=== PATIENT | female | born 1965 | race African-American/Black ===

== ENCOUNTER 2016-11-22 07:50 | Inpatient (IN) | payer MEDICARE, MEDICAID ==
[~2016-11-22] VITALS: Ht 165.1 cm; Wt 49.4 kg
[~2016-11-22 07:50] MED LIST: ASPI325T2 PO; ATOR20TA PO; GLIP10TA10 PO; NVLG73 SUBCUT; PROT20 PO
[2016-11-22] MEDS ORDERED: SODIUM CHLORIDE 0.9% 1,000 ML IV ONE (09:15)
[2016-11-22] MEDS ORDERED: KETOROLAC 30MG/ML VIAL IV STA (09:15)
[2016-11-22] MEDS ORDERED: ONDANSETRON HCL 4MG/2ML VIAL IV STA (09:15)
[2016-11-22 09:40] LABS: BASOPHILS % 1.1 % (0.0-2.0); EOSINOPHILS % 0.4 % (0.0-5.0); HEMATOCRIT. 40.2 % (36.0-48.0); HEMOGLOBIN. 13.4 g/dL (12.0-16.0); LYMPHOCYTES % 31.6 % (20.0-50.0); MEAN CORPUSCULAR HEMOGLOBIN 30.3 pg (28.0-32.0); MEAN CORPUSCULAR HGB CONC 33.3 g/dL (31.0-37.0); MEAN PLATELET VOLUME 8.6 fl (7.4-10.4); NEUTROPHILS % 58.9 % (40.0-76.0); PLATELET 303 x1000/uL (130-400); RED BLOOD CELL COUNT 4.41 mill/uL (4.2-5.4); RED CELL DISTRIBUTION WIDTH 12.9 % (11.6-14.6); WHITE BLOOD COUNT 6.3 x1000/uL (4.5-11.0)
[2016-11-22 09:55] LABS: ALANINE AMINOTRANSFERASE 27 IU/L (13-61); ALBUMIN 3.3 g/dL (3.4-5.0); ANION GAP 15; CALCIUM 9.4 mg/dL (8.5-10.1); CARBON DIOXIDE 28 mEq/L (21-32); CHLORIDE 92 mEq/L (98-107); ETHANOL BLOOD < 10 mg/dL; INDEX HEMOLYSI 1 (1-3); INDEX ICTERIC 1 (1-4); INDEX LIPEMIC 1 (1-3); UREA NITROGEN BLOOD 19 mg/dL (7-21); eGFR > 60 mL/min (>60)
[2016-11-22 10:02] LABS: CLARITY URINE CLEAR (CLEAR); COLOR URINE YELLOW (YELLOW); GLUCOSE URINE 3+ (NEGATIVE); KETONES URINE 1+ (NEGATIVE); LEUKOCYTE ESTERASE URINE NEGATIVE (NEGATIVE); NITRITE URINE NEGATIVE (NEGATIVE); OCCULT BLOOD URINE NEGATIVE (NEGATIVE); PH URINE 5.5 (4.5-8.0); PROTEIN URINE NEGATIVE (NEGATIVE); SPECIFIC GRAVITY URINE 1.037 (1.005-1.030); UROBILINOGEN URINE 0.2 E.U./dL (0.2-1.0)
[2016-11-22 10:16] LABS: *AMPHETAMINES SCREEN URINE NEGATIVE (NEGATIVE); *BARBITURATES SCREEN URINE NEGATIVE (NEGATIVE); *BENZODIAZEPINES SCREEN URINE NEGATIVE (NEGATIVE); *COCAINE SCREEN URINE PRESUMTIVE POSITIVE (NEGATIVE); CANNABINOID URINE SCREEN NEGATIVE (NEGATIVE); ECSTASY MDMA SCREEN URINE NEGATIVE (NEGATIVE); METHADONE URINE SCREEN NEGATIVE (NEGATIVE); OPIATES URINE SCREEN NEGATIVE (NEGATIVE); PHENCYCLIDINE URINE SCREEN NEGATIVE (NEGATIVE)
[2016-11-22 10:19] LABS: BACTERIA URINE TRACE; MUCUS URINE 1+ /lpf (< = 2+); RBC URINE 0-2 /hpf (0-2); SQUAMOUS EPITHELIAL CELL URINE 1+ /lpf (RARE/1+); WBC URINE 0-2 /hpf (0-2)
[2016-11-22 10:20] LABS: YEAST URINE 1+
[2016-11-22] MEDS ORDERED: INSULIN REGULAR 100 UNIT/ML IV ONE (11:30)
[2016-11-22] MEDS ORDERED: NITROGLYCERIN 0.4MG TABLET SL SL PRN (12:15)
[2016-11-22] MEDS ORDERED: IPRATROPIUM/ALBUTEROL 0.5-3(2.5)MG/3ML NEB INH PRN (12:15)
[2016-11-22] MEDS ORDERED: CLONIDINE 0.1MG TABLET PO PRN (12:15)
[2016-11-22] MEDS ORDERED: ACETAMINOPHEN 325MG TABLET PO PRN (12:15)
[2016-11-22] MEDS ORDERED: ONDANSETRON HCL 4MG/2ML VIAL IV PRN (12:15)
[2016-11-22] MEDS ORDERED: DOCUSATE SODIUM 100MG CAPSULE PO PRN (12:15)
[2016-11-22] MEDS ORDERED: KETOROLAC 15MG/ML VIAL IV PRN (12:15)
[2016-11-22] MEDS ORDERED: DEXTROSE 50% WATER 50ML SYRINGE IV PRN (12:15)
[2016-11-22] MEDS ORDERED: MAGNESIUM/ALUMINUM HYDROXIDE/SIMETHICONE 30ML UDC PO PRN (12:15)
[2016-11-22] MEDS ORDERED: DIPHENHYDRAMINE 50MG/ML VIAL IV PRN (12:15)
[2016-11-22] MEDS ORDERED: LORAZEPAM 2MG/ML CPJ IV PRN (12:15)
[2016-11-22] MEDS ORDERED: GUAIFENESIN 200MG/10ML SUGAR FREE UDC PO PRN (12:15)
[2016-11-22] MEDS ORDERED: NA PHOS,M-B/NA PHOS,DI-BA ENEMA 118ML PR PRN (12:15)
[2016-11-22] MEDS ORDERED: INSULIN REGULAR (HUMULIN R) 300UNITS/3ML ONE (12:26)
[2016-11-22 15:00] VITALS: BP 116/72
[2016-11-22 15:18] VITALS: BP 116/72
[2016-11-22] MEDS: ENOXAPARIN 40MG/0.4ML SYR SUBCUT SCH (15:58)
[2016-11-22] MEDS: INSULIN LISPRO 100 UNITS/ML SUBCUT SCH ×3 (15:59→20:57)
[2016-11-22] MEDS: BLOOD SUGAR DIAGNOSTIC STRIP TEST SCH ×2 (16:00→20:52)
[2016-11-22 17:26] LABS: CREATINE KINASE 64 IU/L (26-192); CREATINE KINASE MB FRACTION 1.1 ng/mL (0.5-3.6); INDEX HEMOLYSI 1 (1-3); TROPONIN I < 0.02 ng/mL (0.00-0.04)
[2016-11-22 20:00] VITALS: BP 105/66
[2016-11-22] MEDS: ATORVASTATIN CALCIUM 20MG TABLET PO SCH (20:51)
[2016-11-22] MEDS ORDERED: ZOLPIDEM TARTRATE 5MG TABLET PO PRN (21:00)
[2016-11-22] MEDS ORDERED: INSULIN DETEMIR UD 100 UNITS/ML SYR SUBCUT SCH (22:00)
[2016-11-22] MEDS: INSULIN DETEMIR UD 100 UNITS/ML SYR SUBCUT SCH (22:50)
[2016-11-23 00:07] VITALS: BP 118/90
[2016-11-23 04:00] VITALS: BP 113/77
[2016-11-23 07:00] LABS: CREATINE KINASE 53 IU/L (26-192); CREATINE KINASE MB FRACTION 1.2 ng/mL (0.5-3.6); INDEX HEMOLYSI 1 (1-3); TROPONIN I < 0.02 ng/mL (0.00-0.04)
[2016-11-23] MEDS: BLOOD SUGAR DIAGNOSTIC STRIP TEST SCH ×4 (08:03→20:52)
[2016-11-23] MEDS: PANTOPRAZOLE SODIUM 40 MG/VIAL IV SCH (08:03)
[2016-11-23] MEDS: ZINC SULFATE 220 MG ( 50 ) CAPSULE PO SCH (08:03)
[2016-11-23] MEDS: ASPIRIN 325MG EC TABLET PO SCH (08:03)
[2016-11-23] MEDS: INSULIN LISPRO 100 UNITS/ML SUBCUT SCH ×7 (08:06→20:59)
[2016-11-23 08:09] VITALS: BP 107/78
[2016-11-23 12:00] VITALS: BP 103/61
[2016-11-23] MEDS: ENOXAPARIN 40MG/0.4ML SYR SUBCUT SCH (15:28)
[2016-11-23 16:00] VITALS: BP 101/66
[2016-11-23 20:00] VITALS: BP 110/72
[2016-11-23] MEDS: ATORVASTATIN CALCIUM 20MG TABLET PO SCH (20:52)
[2016-11-23] MEDS: INSULIN DETEMIR UD 100 UNITS/ML SYR SUBCUT SCH (20:58)
[2016-11-24] VITALS: BP 97/52
[2016-11-24 04:00] VITALS: BP 111/77
[2016-11-24] MEDS: BLOOD SUGAR DIAGNOSTIC STRIP TEST SCH ×2 (06:15→12:29)
[2016-11-24] MEDS: INSULIN LISPRO 100 UNITS/ML SUBCUT SCH ×4 (07:40→13:11)
[2016-11-24] MEDS: PANTOPRAZOLE SODIUM 40 MG/VIAL IV SCH (07:57)
[2016-11-24] MEDS: ZINC SULFATE 220 MG ( 50 ) CAPSULE PO SCH (07:57)
[2016-11-24] MEDS: ASPIRIN 325MG EC TABLET PO SCH (07:57)
[2016-11-24 08:00] VITALS: BP 128/82
[2016-11-24 12:00] VITALS: BP 109/76
[2016-11-24] MEDS ORDERED: INSULIN DETEMIR UD 100 UNITS/ML SYR SUBCUT SCH (22:00)
== END 2016-11-24 15:20 | disposition left against medical advice (07) | DRG 637 ==
LOC: ER 08:54 → 7WST 11:32 → SUPCPDRO 12:08
PROVIDERS: ADMIT Internal Medicine; ATTEND Internal Medicine
DX: E11.00 Type 2 diabetes mellitus with hyperosmolarity without nonketotic hyperglycemic-hyperosmolar coma (NKHHC) (principal); G93.40 Encephalopathy, unspecified; E44.1 Mild protein-calorie malnutrition; E87.1 Hypo-osmolality and hyponatremia; I67.82 Cerebral ischemia; Z68.1 Body mass index [BMI] 19.9 or less, adult; E11.65 Type 2 diabetes mellitus with hyperglycemia; Z53.21 Procedure and treatment not carried out due to patient leaving prior to being seen by health care provider; E78.00 Pure hypercholesterolemia, unspecified; F14.10 Cocaine abuse, uncomplicated; I10 Essential (primary) hypertension; K21.9 Gastro-esophageal reflux disease without esophagitis; Z59.0 Homelessness; Z79.4 Long term (current) use of insulin; Z86.73 Personal history of transient ischemic attack (TIA), and cerebral infarction without residual deficits; Z87.891 Personal history of nicotine dependence; Z91.19 Patient's noncompliance with other medical treatment and regimen; Z79.82 Long term (current) use of aspirin; Z79.899 Other long term (current) drug therapy; Z71.51 Drug abuse counseling and surveillance of drug abuser
CPT/HCPCS: 36415; 70450; 71010; 80053; 80061; 80305; 81001; 81025; 82550; 82553; 82962; 83036; 84484; 85025; 93005; 96374; 96375; 97162; 97166; 99285; C9113; G0482; J1650; J1815; J1885; J2405; J7030

== ENCOUNTER 2016-12-12 00:31 | Emergency (ER) | payer MEDICARE, MEDICAID ==
[~2016-12-12] VITALS: Ht 165.1 cm; Wt 54.0 kg
[2016-12-12] MEDS ORDERED: HYDROCODONE/ACETAMINOPHEN 10/325MG TABLET PO ONE (07:00)
[2016-12-12 07:50] VITALS: BP 129/69
== END 2016-12-12 08:10 | disposition home or self-care (01) ==
LOC: ER 01:51
DX: K04.7 Periapical abscess without sinus (principal); K21.9 Gastro-esophageal reflux disease without esophagitis; I10 Essential (primary) hypertension; E11.9 Type 2 diabetes mellitus without complications; I69.351 Hemiplegia and hemiparesis following cerebral infarction affecting right dominant side; Z79.4 Long term (current) use of insulin; Z79.82 Long term (current) use of aspirin; Z87.891 Personal history of nicotine dependence
CPT/HCPCS: 99283

== ENCOUNTER 2017-04-30 12:34 | Emergency (ER) | payer MEDICARE, MEDICAID ==
[~2017-04-30] VITALS: Ht 152.4 cm; Wt 63.0 kg
[~2017-04-30 12:34] MED LIST changes: +ASPI-986 PO; -ASPI325T2 PO
[2017-05-01 02:40] VITALS: BP 110/78
== END 2017-05-01 02:40 | disposition home or self-care (01) ==
LOC: ER 12:34
DX: S09.93XA Unspecified injury of face, initial encounter (principal); S80.212A Abrasion, left knee, initial encounter; E11.9 Type 2 diabetes mellitus without complications; K21.9 Gastro-esophageal reflux disease without esophagitis; I10 Essential (primary) hypertension; Z86.73 Personal history of transient ischemic attack (TIA), and cerebral infarction without residual deficits; Z88.5 Allergy status to narcotic agent; Z79.82 Long term (current) use of aspirin; Z79.4 Long term (current) use of insulin; Y08.89XA Assault by other specified means, initial encounter; Y93.89 Activity, other specified; Y92.524 Gas station as the place of occurrence of the external cause
CPT/HCPCS: 70450; 70486; 73562; 99284

== ENCOUNTER 2017-07-12 20:09 | Inpatient (IN) | payer MEDICARE, MEDICAID ==
[~2017-07-12] VITALS: Ht 160 cm; Wt 58.1 kg
[2017-07-13] MEDS ORDERED: SODIUM CHLORIDE 0.9% 1,000 ML IV ONE ×2 (01:33→02:04)
[2017-07-13 02:01] LABS: BASOPHILS % 1.5 % (0.0-2.0); EOSINOPHILS % 0.8 % (0.0-5.0); HEMATOCRIT. 39.4 % (36.0-48.0); HEMOGLOBIN. 13.5 g/dL (12.0-16.0); LYMPHOCYTES % 37.6 % (20.0-50.0); MEAN CORPUSCULAR HEMOGLOBIN 31.3 pg (28.0-32.0); MEAN CORPUSCULAR VOLUME 91.5 fL (81.0-99.0); MEAN PLATELET VOLUME 8.5 fl (7.4-10.4); MONOCYTES % 8.5 % (2.0-8.0); NEUTROPHILS % 51.6 % (40.0-76.0); PLATELET 219 x1000/uL (130-400); RED CELL DISTRIBUTION WIDTH 13.1 % (11.6-14.6)
[2017-07-13 02:09] LABS: CHLORIDE 92 mEq/L (98-107)
[2017-07-13 02:19] LABS: CARBON DIOXIDE 28 mEq/L (21-32); ETHANOL BLOOD < 10 mg/dL
[2017-07-13 02:43] LABS: CREATINE KINASE 71 IU/L (26-192)
[2017-07-13 02:58] LABS: BG BASE EXCESS 4.1 mmol/L (-2.0-2.0); BG CARBOXYHEMOGLOBIN 2.1 % (0.5-1.5); BG DEOXYHEMOGLOBIN 7.6 % (0.0-5.0); BG FRACTION INSPIRED OXYGEN 21; BG HCO3 ACT 30.2 mmol/L (22.0-26.0); BG METHEMOGLOBIN 0.3 % (0.0-1.5); BG OXYGEN SATURATION 92.2 % (92.0-98.5); BG PCO2 51.3 mmHg (35.0-45.0); BG PH 7.388 (7.350-7.450); BG PO2 63.2 mmHg (75.0-100.0); BG SAMPLE SITE RIGHT BRACHIAL; BG TOTAL HEMOGLOBIN 13.5 g/dL (12.0-18.0); BG VENT MODE ROOM AIR
[2017-07-13 03:47] LABS: CLARITY URINE CLEAR (CLEAR); COLOR URINE YELLOW (YELLOW); KETONES URINE NEGATIVE (NEGATIVE); LEUKOCYTE ESTERASE URINE NEGATIVE (NEGATIVE); NITRITE URINE NEGATIVE (NEGATIVE); OCCULT BLOOD URINE NEGATIVE (NEGATIVE); PH URINE 6.5 (4.5-8.0); PROTEIN URINE NEGATIVE (NEGATIVE); SPECIFIC GRAVITY URINE 1.036 (1.005-1.030); UROBILINOGEN URINE 0.2 E.U./dL (0.2-1.0)
[2017-07-13 04:00] LABS: *AMPHETAMINES SCREEN URINE NEGATIVE (NEGATIVE); *BARBITURATES SCREEN URINE NEGATIVE (NEGATIVE); *BENZODIAZEPINES SCREEN URINE NEGATIVE (NEGATIVE); *COCAINE SCREEN URINE PRESUMTIVE POSITIVE (NEGATIVE); CANNABINOID URINE SCREEN NEGATIVE (NEGATIVE); METHADONE URINE SCREEN NEGATIVE (NEGATIVE); OPIATES URINE SCREEN NEGATIVE (NEGATIVE); PHENCYCLIDINE URINE SCREEN NEGATIVE (NEGATIVE)
[2017-07-13] MEDS ORDERED: SODIUM CHLORIDE 0.9% 1,000 ML IV SCH (04:50)
[2017-07-13] MEDS ORDERED: INSULIN REGULAR (HUMULIN R) 300UNITS/3ML IV NR (09:12)
[2017-07-13] MEDS ORDERED: IPRATROPIUM/ALBUTEROL 0.5-3(2.5)MG/3ML NEB INH PRN (09:15)
[2017-07-13] MEDS ORDERED: ONDANSETRON HCL 4MG/2ML VIAL IV PRN (09:15)
[2017-07-13] MEDS ORDERED: NA PHOS,M-B/NA PHOS,DI-BA ENEMA 118ML PR PRN (09:15)
[2017-07-13] MEDS ORDERED: NITROGLYCERIN 0.4MG TABLET SL SL PRN (09:15)
[2017-07-13] MEDS ORDERED: ZOLPIDEM TARTRATE 5MG TABLET PO PRN (09:15)
[2017-07-13] MEDS ORDERED: DOCUSATE SODIUM 100MG CAPSULE PO PRN (09:15)
[2017-07-13] MEDS ORDERED: LORAZEPAM 0.5MG TABLET PO PRN (09:15)
[2017-07-13] MEDS ORDERED: MAGNESIUM/ALUMINUM HYDROXIDE/SIMETHICONE 30ML UDC PO PRN (09:15)
[2017-07-13] MEDS ORDERED: ACETAMINOPHEN 325MG TABLET PO PRN (09:15)
[2017-07-13] MEDS ORDERED: CLONIDINE 0.1MG TABLET PO PRN (09:15)
[2017-07-13] MEDS ORDERED: DIPHENHYDRAMINE 50MG/ML VIAL IV PRN (09:15)
[2017-07-13] MEDS ORDERED: KETOROLAC 15MG/ML VIAL IV PRN (09:15)
[2017-07-13] MEDS ORDERED: GUAIFENESIN 200MG/10ML SUGAR FREE UDC PO PRN (09:15)
[2017-07-13] MEDS ORDERED: DEXTROSE 50% WATER 50ML SYRINGE IV PRN (09:15)
[2017-07-13 11:04] VITALS: BP 134/77
[2017-07-13] MEDS ORDERED: INSULIN DETEMIR UD 100 UNITS/ML SYR SUBCUT SCH (11:30)
[2017-07-13] MEDS: ENOXAPARIN 40MG/0.4ML SYR SUBCUT SCH (11:40)
[2017-07-13 12:15] VITALS: BP 97/64
[2017-07-13] MEDS: INSULIN LISPRO 100 UNITS/ML SUBCUT SCH ×5 (14:09→20:36)
[2017-07-13] MEDS: SODIUM CHLORIDE 0.9% 1,000 ML IV SCH ×2 (14:11→20:25)
[2017-07-13] MEDS: BLOOD SUGAR DIAGNOSTIC STRIP TEST SCH ×3 (14:11→20:36)
[2017-07-13 15:55] VITALS: BP 127/88
[2017-07-13 16:40] LABS: CREATINE KINASE 143 IU/L (26-192); CREATINE KINASE MB FRACTION 3.8 ng/mL (0.5-3.6); TROPONIN I < 0.02 ng/mL (0.00-0.04)
[2017-07-13 20:00] VITALS: BP 125/74
[2017-07-13] MEDS: ATORVASTATIN CALCIUM 20MG TABLET PO SCH (20:25)
[2017-07-13] MEDS: FAMOTIDINE 20MG/2ML VIAL IV SCH (20:25)
[2017-07-13] MEDS: LISINOPRIL 20MG TABLET PO SCH (20:31)
[2017-07-14] VITALS: BP 116/69
[2017-07-14 04:00] VITALS: BP 102/73
[2017-07-14] MEDS: SODIUM CHLORIDE 0.9% 1,000 ML IV SCH ×2 (06:10→16:25)
[2017-07-14] MEDS: BLOOD SUGAR DIAGNOSTIC STRIP TEST SCH ×4 (07:20→20:54)
[2017-07-14 08:00] VITALS: BP 109/79
[2017-07-14] MEDS: ASPIRIN 325MG EC TABLET PO SCH (09:45)
[2017-07-14] MEDS: LISINOPRIL 20MG TABLET PO SCH ×2 (09:45→20:53)
[2017-07-14] MEDS: ENOXAPARIN 40MG/0.4ML SYR SUBCUT SCH (09:46)
[2017-07-14] MEDS: FAMOTIDINE 20MG/2ML VIAL IV SCH ×2 (09:46→20:51)
[2017-07-14] MEDS: INSULIN LISPRO 100 UNITS/ML SUBCUT SCH ×7 (09:50→20:53)
[2017-07-14 10:43] LABS: CREATINE KINASE 348 IU/L (26-192); CREATINE KINASE MB FRACTION 5.7 ng/mL (0.5-3.6); TROPONIN I < 0.02 ng/mL (0.00-0.04)
[2017-07-14 12:00] VITALS: BP 110/66
[2017-07-14] MEDS: INSULIN DETEMIR UD 100 UNITS/ML SYR SUBCUT SCH (14:14)
[2017-07-14 16:00] VITALS: BP 101/69
[2017-07-14 20:00] VITALS: BP 110/64
[2017-07-14] MEDS: ATORVASTATIN CALCIUM 20MG TABLET PO SCH (20:51)
[2017-07-15] VITALS: BP 102/69
[2017-07-15] MEDS: BLOOD SUGAR DIAGNOSTIC STRIP TEST SCH ×4 (07:11→20:57)
[2017-07-15 08:00] VITALS: BP 104/62
[2017-07-15] MEDS: ASPIRIN 325MG EC TABLET PO SCH (08:55)
[2017-07-15] MEDS: LISINOPRIL 20MG TABLET PO SCH ×2 (08:56→20:57)
[2017-07-15] MEDS: ENOXAPARIN 40MG/0.4ML SYR SUBCUT SCH (08:56)
[2017-07-15] MEDS: INSULIN LISPRO 100 UNITS/ML SUBCUT SCH ×7 (08:59→21:00)
[2017-07-15] MEDS: FAMOTIDINE 20MG/2ML VIAL IV SCH ×2 (09:02→21:26)
[2017-07-15] MEDS: INSULIN DETEMIR UD 100 UNITS/ML SYR SUBCUT SCH (11:05)
[2017-07-15 12:00] VITALS: BP 117/74
[2017-07-15] MEDS: SODIUM CHLORIDE 0.9% 1,000 ML IV SCH ×2 (12:25→22:25)
[2017-07-15 16:00] VITALS: BP 100/67
[2017-07-15 20:00] VITALS: BP 115/69
[2017-07-15] MEDS: ATORVASTATIN CALCIUM 20MG TABLET PO SCH (20:57)
[2017-07-16] VITALS: BP 95/68
[2017-07-16 04:00] VITALS: BP 109/71
[2017-07-16] MEDS: BLOOD SUGAR DIAGNOSTIC STRIP TEST SCH ×2 (06:34→12:11)
[2017-07-16] MEDS: INSULIN LISPRO 100 UNITS/ML SUBCUT SCH ×4 (07:36→12:11)
[2017-07-16 08:00] VITALS: BP 121/79
[2017-07-16] MEDS: SODIUM CHLORIDE 0.9% 1,000 ML IV SCH (08:25)
[2017-07-16] MEDS: FAMOTIDINE 20MG/2ML VIAL IV SCH (08:58)
[2017-07-16] MEDS: LISINOPRIL 20MG TABLET PO SCH (09:03)
[2017-07-16] MEDS: ASPIRIN 325MG EC TABLET PO SCH (09:03)
[2017-07-16] MEDS: ENOXAPARIN 40MG/0.4ML SYR SUBCUT SCH (09:14)
[2017-07-16] MEDS: INSULIN DETEMIR UD 100 UNITS/ML SYR SUBCUT SCH (10:50)
[2017-07-16 10:59] VITALS: BP 120/81
[2017-07-16] MEDS ORDERED: ATORVASTATIN CALCIUM 10MG TABLET PO SCH (21:00)
== END 2017-07-16 15:10 | disposition home or self-care (01) | DRG 637 ==
LOC: ER 20:09 → 6WST 07-13 04:54 → ENRESERV 07-13 06:59 → 6WST 07-13 10:42
PROVIDERS: ADMIT Internal Medicine; ATTEND Internal Medicine
DX: E11.00 Type 2 diabetes mellitus with hyperosmolarity without nonketotic hyperglycemic-hyperosmolar coma (NKHHC) (principal); G92 Toxic encephalopathy; E44.0 Moderate protein-calorie malnutrition; E87.0 Hyperosmolality and hypernatremia; E87.1 Hypo-osmolality and hyponatremia; E11.65 Type 2 diabetes mellitus with hyperglycemia; F14.10 Cocaine abuse, uncomplicated; E78.00 Pure hypercholesterolemia, unspecified; I10 Essential (primary) hypertension; K21.9 Gastro-esophageal reflux disease without esophagitis; F17.200 Nicotine dependence, unspecified, uncomplicated; Z79.899 Other long term (current) drug therapy; Z88.5 Allergy status to narcotic agent; Z79.4 Long term (current) use of insulin; Z79.82 Long term (current) use of aspirin; Z68.22 Body mass index [BMI] 22.0-22.9, adult; Z86.73 Personal history of transient ischemic attack (TIA), and cerebral infarction without residual deficits
CPT/HCPCS: 36415; 36600; 70450; 71010; 80053; 80061; 80305; 80307; 80329; 81001; 82010; 82375; 82550; 82553; 82805; 82962; 83036; 83605; 83690; 83930; 84484; 85025; 85610; 93005; 93970; 96361; 96374; 97116; 97161; 97166; 99291; G0482; J1650; J1815; J1885; J3490; J7030

== ENCOUNTER 2017-07-18 10:28 | Emergency (ER) | payer MEDICARE, MEDICAID ==
[~2017-07-18] VITALS: Ht 167.6 cm; Wt 68.0 kg
[2017-07-18 11:06] VITALS: BP 123/77
== END 2017-07-18 17:56 | disposition left against medical advice (07) ==
LOC: ER 11:27
DX: Z76.0 Encounter for issue of repeat prescription (principal); Z53.21 Procedure and treatment not carried out due to patient leaving prior to being seen by health care provider

== ENCOUNTER 2017-07-20 20:23 | Inpatient (IN) | payer MEDICARE, MEDICAID ==
[~2017-07-20] VITALS: Ht 165.1 cm; Wt 59.9 kg
[2017-07-21 00:56] LABS: *AMPHETAMINES SCREEN URINE NEGATIVE (NEGATIVE); *BARBITURATES SCREEN URINE NEGATIVE (NEGATIVE); *BENZODIAZEPINES SCREEN URINE NEGATIVE (NEGATIVE); *COCAINE SCREEN URINE PRESUMTIVE POSITIVE (NEGATIVE); CANNABINOID URINE SCREEN NEGATIVE (NEGATIVE); METHADONE URINE SCREEN NEGATIVE (NEGATIVE); OPIATES URINE SCREEN NEGATIVE (NEGATIVE); PHENCYCLIDINE URINE SCREEN NEGATIVE (NEGATIVE)
[2017-07-21] MEDS ORDERED: SODIUM CHLORIDE 0.9% 1,000 ML IV ONE (02:18)
[2017-07-21 03:04] LABS: HEMATOCRIT. 39.9 % (36.0-48.0); HEMOGLOBIN. 13.4 g/dL (12.0-16.0); MEAN CORPUSCULAR HEMOGLOBIN 30.7 pg (28.0-32.0); MEAN CORPUSCULAR VOLUME 91.2 fL (81.0-99.0); PLATELET 295 x1000/uL (130-400); RED BLOOD CELL COUNT 4.38 mill/uL (4.2-5.4); RED CELL DISTRIBUTION WIDTH 13.3 % (11.6-14.6)
[2017-07-21 03:09] LABS: PROTHROMBIN TIME 10.4 sec (9.4-11.6)
[2017-07-21 03:17] LABS: CARBON DIOXIDE 27 mEq/L (21-32); CHLORIDE 96 mEq/L (98-107); ETHANOL BLOOD < 10 mg/dL
[2017-07-21 06:12] VITALS: BP 120/73
[2017-07-21 06:30] VITALS: BP 120/73
[2017-07-21] MEDS: IPRATROPIUM/ALBUTEROL 0.5-3(2.5)MG/3ML NEB HHN SCH (07:32)
[2017-07-21 07:33] LABS: ATYPICAL LYMPHOCYTES 9; PLATELET ESTIMATE NORMAL
[2017-07-21 08:00] VITALS: BP 108/74
[2017-07-21] MEDS ORDERED: NA PHOS,M-B/NA PHOS,DI-BA ENEMA 118ML PR PRN (09:00)
[2017-07-21] MEDS ORDERED: IPRATROPIUM/ALBUTEROL 0.5-3(2.5)MG/3ML NEB INH PRN (10:00)
[2017-07-21] MEDS ORDERED: DIPHENHYDRAMINE 50MG/ML VIAL IV PRN (10:15)
[2017-07-21] MEDS ORDERED: CLONIDINE 0.1MG TABLET PO PRN (10:15)
[2017-07-21] MEDS ORDERED: ONDANSETRON HCL 4MG/2ML VIAL IV PRN (10:15)
[2017-07-21] MEDS ORDERED: GUAIFENESIN 200MG/10ML SUGAR FREE UDC PO PRN (10:15)
[2017-07-21] MEDS ORDERED: MAGNESIUM/ALUMINUM HYDROXIDE/SIMETHICONE 30ML UDC PO PRN (10:15)
[2017-07-21] MEDS ORDERED: DOCUSATE SODIUM 100MG CAPSULE PO PRN (10:15)
[2017-07-21] MEDS ORDERED: LORAZEPAM 0.5MG TABLET PO PRN (10:15)
[2017-07-21] MEDS ORDERED: ACETAMINOPHEN 325MG TABLET PO PRN (10:15)
[2017-07-21] MEDS ORDERED: DEXTROSE 50% WATER 50ML SYRINGE IV PRN (11:00)
[2017-07-21] MEDS: ASPIRIN 81MG EC TABLET PO SCH (11:47)
[2017-07-21] MEDS: ENOXAPARIN 40MG/0.4ML SYR SUBCUT SCH (11:48)
[2017-07-21] MEDS: HYDROCODONE/APAP 7.5/325MG 1 TAB TABLET PO PRN (11:48)
[2017-07-21] MEDS: LEVOFLOXACIN 500MG PREMIX 100 ML IV SCH (11:48)
[2017-07-21] MEDS: BLOOD SUGAR DIAGNOSTIC STRIP TEST SCH ×3 (11:48→20:32)
[2017-07-21 12:00] VITALS: BP 108/72
[2017-07-21] MEDS: INSULIN LISPRO 100 UNITS/ML SUBCUT SCH ×3 (12:02→20:33)
[2017-07-21 16:00] VITALS: BP 100/62
[2017-07-21 16:46] LABS: CARBON DIOXIDE 23 mEq/L (21-32); CHLORIDE 100 mEq/L (98-107); TROPONIN I < 0.02 ng/mL (0.00-0.04)
[2017-07-21 17:46] LABS: BG BASE EXCESS 3.1 mmol/L (-2.0-2.0); BG CARBOXYHEMOGLOBIN 0.3 % (0.5-1.5); BG DEOXYHEMOGLOBIN 1.9 % (0.0-5.0); BG FRACTION INSPIRED OXYGEN 21; BG HCO3 ACT 27.9 mmol/L (22.0-26.0); BG METHEMOGLOBIN 0.3 % (0.0-1.5); BG OXYGEN SATURATION 98.1 % (92.0-98.5); BG OXYHEMOGLOBIN 97.5 % (94.0-97.0); BG PCO2 43.5 mmHg (35.0-45.0); BG PH 7.425 (7.350-7.450); BG PO2 114.2 mmHg (75.0-100.0); BG SAMPLE SITE LEFT RADIAL; BG VENT MODE ROOM AIR
[2017-07-21 20:00] VITALS: BP 98/61
[2017-07-21] MEDS ORDERED: IPRATROPIUM/ALBUTEROL 0.5-3(2.5)MG/3ML NEB HHN PRN (20:00)
[2017-07-22] VITALS (7 sets, daily range): BP systolic 90–108; BP diastolic 54–77
[2017-07-22 06:10] LABS: BASOPHILS % 0.8 % (0.0-2.0); EOSINOPHILS % 0.6 % (0.0-5.0); HEMATOCRIT. 32.7 % (36.0-48.0); HEMOGLOBIN. 11.3 g/dL (12.0-16.0); LYMPHOCYTES % 40.3 % (20.0-50.0); MEAN CORPUSCULAR VOLUME 89.8 fL (81.0-99.0); MEAN PLATELET VOLUME 7.9 fl (7.4-10.4); MONOCYTES % 9.2 % (2.0-8.0); NEUTROPHILS % 49.1 % (40.0-76.0); PLATELET 299 x1000/uL (130-400); RED BLOOD CELL COUNT 3.64 mill/uL (4.2-5.4); RED CELL DISTRIBUTION WIDTH 13.2 % (11.6-14.6)
[2017-07-22] MEDS: HYDROCODONE/APAP 7.5/325MG 1 TAB TABLET PO PRN ×2 (06:27→13:17)
[2017-07-22 06:47] LABS: CHLORIDE 101 mEq/L (98-107)
[2017-07-22] MEDS: BLOOD SUGAR DIAGNOSTIC STRIP TEST SCH ×4 (06:52→21:03)
[2017-07-22 07:01] LABS: CARBON DIOXIDE 23 mEq/L (21-32); HDL CHOLESTEROL 61 mg/dL (40-59); LDL CHOLESTEROL 84 mg/dL (5-100); T4 FREE 1.06 ng/dL (0.76-1.46); TROPONIN I < 0.02 ng/mL (0.00-0.04)
[2017-07-22] MEDS: INSULIN LISPRO 100 UNITS/ML SUBCUT SCH ×4 (09:08→21:03)
[2017-07-22] MEDS: ASPIRIN 81MG EC TABLET PO SCH (09:09)
[2017-07-22] MEDS: ENOXAPARIN 40MG/0.4ML SYR SUBCUT SCH (09:09)
[2017-07-22] MEDS: LEVOFLOXACIN 500MG PREMIX 100 ML IV SCH (13:18)
[2017-07-22] MEDS: IPRATROPIUM/ALBUTEROL 0.5-3(2.5)MG/3ML NEB HHN SCH ×2 (15:45→20:19)
[2017-07-22] MEDS: OSELTAMIVIR 75MG CAPSULE PO SCH ×2 (17:50→21:02)
[2017-07-23 04:00] VITALS: BP 125/56
[2017-07-23 07:33] LABS: CLARITY URINE CLEAR (CLEAR); COLOR URINE YELLOW (YELLOW); KETONES URINE NEGATIVE (NEGATIVE); LEUKOCYTE ESTERASE URINE NEGATIVE (NEGATIVE); NITRITE URINE NEGATIVE (NEGATIVE); OCCULT BLOOD URINE NEGATIVE (NEGATIVE); PROTEIN URINE NEGATIVE (NEGATIVE); SPECIFIC GRAVITY URINE 1.022 (1.005-1.030)
[2017-07-23] MEDS: BLOOD SUGAR DIAGNOSTIC STRIP TEST SCH ×2 (07:40→12:40)
[2017-07-23 08:00] VITALS: BP 105/64
[2017-07-23] MEDS: ASPIRIN 81MG EC TABLET PO SCH (08:53)
[2017-07-23] MEDS: OSELTAMIVIR 75MG CAPSULE PO SCH (08:53)
[2017-07-23] MEDS: ENOXAPARIN 40MG/0.4ML SYR SUBCUT SCH (08:53)
[2017-07-23] MEDS: INSULIN LISPRO 100 UNITS/ML SUBCUT SCH ×2 (08:54→13:41)
[2017-07-23] MEDS: IPRATROPIUM/ALBUTEROL 0.5-3(2.5)MG/3ML NEB HHN SCH (09:05)
[2017-07-23 10:24] VITALS: BP 105/64
[2017-07-23 12:00] VITALS: BP 106/60
[2017-07-23] MEDS: LEVOFLOXACIN 500MG PREMIX 100 ML IV SCH (12:00)
== END 2017-07-23 14:30 | disposition home or self-care (01) | DRG 177 ==
LOC: ER 21:02 → 7WST 07-21 02:22 → ENRESERV 07-21 03:30
PROVIDERS: ADMIT Internal Medicine; ATTEND Internal Medicine
DX: J69.0 Pneumonitis due to inhalation of food and vomit (principal); G93.40 Encephalopathy, unspecified; J96.00 Acute respiratory failure, unspecified whether with hypoxia or hypercapnia; E46 Unspecified protein-calorie malnutrition; J44.0 Chronic obstructive pulmonary disease with (acute) lower respiratory infection; J44.1 Chronic obstructive pulmonary disease with (acute) exacerbation; I10 Essential (primary) hypertension; E11.65 Type 2 diabetes mellitus with hyperglycemia; E78.5 Hyperlipidemia, unspecified; F14.10 Cocaine abuse, uncomplicated; J20.9 Acute bronchitis, unspecified; J10.1 Influenza due to other identified influenza virus with other respiratory manifestations; K21.9 Gastro-esophageal reflux disease without esophagitis; Z79.82 Long term (current) use of aspirin; Z79.84 Long term (current) use of oral hypoglycemic drugs; Z79.899 Other long term (current) drug therapy; Z86.73 Personal history of transient ischemic attack (TIA), and cerebral infarction without residual deficits; Z87.891 Personal history of nicotine dependence
CPT/HCPCS: 36415; 36600; 71010; 80048; 80053; 80061; 80305; 81001; 81025; 82375; 82805; 82962; 84439; 84443; 84484; 85025; 85610; 86710; 87804; 93005; 94640; 96360; 99285; G0482; J1650; J1815; J1956; J7030; J7050; J7620

== ENCOUNTER 2017-08-08 11:33 | Emergency (ER) | payer MEDICAID, MEDICARE ==
[~2017-08-08] VITALS: Ht 167.6 cm; Wt 70.0 kg
[2017-08-08 12:04] VITALS: BP 131/84
== END 2017-08-08 14:34 | disposition left against medical advice (07) ==
LOC: ER 12:33
DX: R05 Cough (principal); R50.9 Fever, unspecified; Z53.21 Procedure and treatment not carried out due to patient leaving prior to being seen by health care provider

== ENCOUNTER 2017-08-09 07:33 | Emergency (ER) | payer MEDICARE ==
[~2017-08-09] VITALS: Ht 165.1 cm; Wt 59.0 kg
[2017-08-09] MEDS ORDERED: TETANUS, DIPHTHERIA, PERTUSSIS VAC/PF 0.5ML (>7YR OLD) IM ONE (11:00)
[2017-08-09] MEDS ORDERED: MUPIROCIN 2% OINT 22GM TOP SCH (11:00)
[2017-08-09 11:51] VITALS: BP 159/89
== END 2017-08-09 13:11 | disposition home or self-care (01) ==
LOC: ER 07:45
DX: L98.499 Non-pressure chronic ulcer of skin of other sites with unspecified severity (principal); I10 Essential (primary) hypertension; E11.622 Type 2 diabetes mellitus with other skin ulcer; J45.909 Unspecified asthma, uncomplicated; F14.10 Cocaine abuse, uncomplicated; K21.9 Gastro-esophageal reflux disease without esophagitis; Z79.4 Long term (current) use of insulin; Z79.82 Long term (current) use of aspirin; Z86.73 Personal history of transient ischemic attack (TIA), and cerebral infarction without residual deficits; Z87.891 Personal history of nicotine dependence; Z88.5 Allergy status to narcotic agent
CPT/HCPCS: 90471; 90715; 99283

== ENCOUNTER 2017-08-30 21:26 | Inpatient (IN) | payer MEDICARE ==
[~2017-08-30] VITALS: Ht 162.6 cm; Wt 63.5 kg
[2017-08-30] MEDS ORDERED: SODIUM CHLORIDE 0.9% 1000ML BAG (SEPSIS BOLUS) IV ONE (23:00)
[2017-08-30 23:42] LABS: BASOPHILS % 0.5 % (0.0-2.0); EOSINOPHILS % 0.3 % (0.0-5.0); HEMATOCRIT. 23.1 % (36.0-48.0); HEMOGLOBIN. 7.6 g/dL (12.0-16.0); LYMPHOCYTES % 22.2 % (20.0-50.0); MEAN CORPUSCULAR HEMOGLOBIN 30.6 pg (28.0-32.0); MEAN CORPUSCULAR VOLUME 93.4 fL (81.0-99.0); MEAN PLATELET VOLUME 8.7 fl (7.4-10.4); MONOCYTES % 7.6 % (2.0-8.0); NEUTROPHILS % 69.4 % (40.0-76.0); PLATELET 140 x1000/uL (130-400); RED BLOOD CELL COUNT 2.47 mill/uL (4.2-5.4); RED CELL DISTRIBUTION WIDTH 13.1 % (11.6-14.6)
[2017-08-30] MEDS ORDERED: CEFEPIME 2,000 MG in DEXT 5% WATER 100 ML IV SCH (23:45)
[2017-08-30] MEDS ORDERED: AZITHROMYCIN 500 MG in DEXT 5% WATER 250 ML IV SCH (23:45)
[2017-08-30] MEDS ORDERED: VANCOMYCIN 1,000 MG in DEXT 5% WATER 250 ML IV SCH (23:45)
[2017-08-31] VITALS (17 sets, daily range): BP systolic 69–148; BP diastolic 42–107
[2017-08-31] MEDS ORDERED: CEFEPIME 2,000 MG in SODIUM CHLORIDE 0.9% 100 ML IV SCH (00:28)
[2017-08-31] MEDS ORDERED: CALCIUM GLUCONATE 100MG/ML 10ML VIAL IV ONE (00:30)
[2017-08-31] MEDS ORDERED: POTASSIUM CHLORIDE INJ 40 MEQ in DEXT 5% WATER 250 ML IV ONE (00:30)
[2017-08-31 00:51] LABS: CHLORIDE 86 mEq/L (98-107)
[2017-08-31 01:04] LABS: BETA HYDROXYBUTYRATE 0.3 mMol/L (0.0-0.3)
[2017-08-31] MEDS ORDERED: CALCIUM GLUCONATE 1,000 MG in SODIUM CHLORIDE 0.9% 100 ML IV SCH (01:15)
[2017-08-31] MEDS ORDERED: INSULIN REGULAR (DRIP) 100 UNITS in SODIUM CHLORIDE 0.9% 100 ML IV ONE (01:57)
[2017-08-31] MEDS ORDERED: INSULIN REGULAR (HUMULIN R) 300UNITS/3ML IV ONE (02:00)
[2017-08-31] MEDS: SODIUM CHLORIDE 0.9% 1,000 ML IV SCH ×3 (06:30→15:23)
[2017-08-31] MEDS ORDERED: ACETAMINOPHEN 325MG TABLET PO PRN (06:30)
[2017-08-31] MEDS ORDERED: ONDANSETRON HCL 4MG TABLET PO PRN (06:30)
[2017-08-31] MEDS ORDERED: DEXTROSE 50% WATER 50ML SYRINGE IV PRN (07:00)
[2017-08-31 08:17] LABS: BASOPHILS % 0.8 % (0.0-2.0); EOSINOPHILS % 0.4 % (0.0-5.0); HEMOGLOBIN. 12.6 g/dL (12.0-16.0); MEAN CORPUSCULAR HEMOGLOBIN 30.5 pg (28.0-32.0); MEAN CORPUSCULAR VOLUME 91.6 fL (81.0-99.0); MEAN PLATELET VOLUME 8.9 fl (7.4-10.4); MONOCYTES % 10.8 % (2.0-8.0); PLATELET 215 x1000/uL (130-400); RED BLOOD CELL COUNT 4.14 mill/uL (4.2-5.4); RED CELL DISTRIBUTION WIDTH 13.6 % (11.6-14.6)
[2017-08-31 08:35] LABS: CHLORIDE 99 mEq/L (98-107)
[2017-08-31] MEDS: BLOOD SUGAR DIAGNOSTIC STRIP TEST SCH ×4 (08:46→21:10)
[2017-08-31] MEDS ORDERED: VANCOMYCIN 1 G PREMIX 200 ML IV SCH (09:00)
[2017-08-31] MEDS: HYDROCODONE/ACETAMINOPHEN 5/325MG TABLET PO PRN (09:34)
[2017-08-31] MEDS: INS NPH/REG HM 70-30 100 UNITS/ML 10ML VIAL (HUMULIN 70-30) SUBCUT SCH (09:41)
[2017-08-31] MEDS: INSULIN LISPRO 100 UNITS/ML SUBCUT SCH ×4 (09:53→21:17)
[2017-09-01] VITALS: BP 115/72
[2017-09-01] MEDS: SODIUM CHLORIDE 0.9% 1,000 ML IV SCH ×3 (01:32→21:08)
[2017-09-01 04:00] VITALS: BP 144/88
[2017-09-01 06:31] LABS: BASOPHILS % 0.8 % (0.0-2.0); EOSINOPHILS % 0.8 % (0.0-5.0); HEMATOCRIT. 33.9 % (36.0-48.0); HEMOGLOBIN. 11.3 g/dL (12.0-16.0); MEAN CORPUSCULAR HEMOGLOBIN 30.2 pg (28.0-32.0); MEAN CORPUSCULAR VOLUME 90.4 fL (81.0-99.0); MEAN PLATELET VOLUME 8.3 fl (7.4-10.4); NEUTROPHILS % 50.4 % (40.0-76.0); PLATELET 238 x1000/uL (130-400); RED BLOOD CELL COUNT 3.75 mill/uL (4.2-5.4); RED CELL DISTRIBUTION WIDTH 13.4 % (11.6-14.6)
[2017-09-01] MEDS: BLOOD SUGAR DIAGNOSTIC STRIP TEST SCH ×4 (06:31→20:53)
[2017-09-01] MEDS: INSULIN LISPRO 100 UNITS/ML SUBCUT SCH ×4 (06:40→21:05)
[2017-09-01 07:21] LABS: CHLORIDE 103 mEq/L (98-107)
[2017-09-01 08:00] VITALS: BP 120/76
[2017-09-01] MEDS: INS NPH/REG HM 70-30 100 UNITS/ML 10ML VIAL (HUMULIN 70-30) SUBCUT SCH (09:24)
[2017-09-01 12:00] VITALS: BP 145/90
[2017-09-01 16:00] VITALS: BP 109/73
[2017-09-01 20:00] VITALS: BP 133/89
[2017-09-02] VITALS: BP 106/61
[2017-09-02 04:00] VITALS: BP 122/79
[2017-09-02] MEDS: BLOOD SUGAR DIAGNOSTIC STRIP TEST SCH ×4 (06:41→20:14)
[2017-09-02] MEDS: INSULIN LISPRO 100 UNITS/ML SUBCUT SCH ×4 (06:46→20:14)
[2017-09-02 08:00] VITALS: BP 132/78
[2017-09-02] MEDS: INS NPH/REG HM 70-30 100 UNITS/ML 10ML VIAL (HUMULIN 70-30) SUBCUT SCH (08:26)
[2017-09-02 12:00] VITALS: BP 115/67
[2017-09-02] MEDS: HYDROCODONE/ACETAMINOPHEN 5/325MG TABLET PO PRN ×2 (13:53→18:03)
[2017-09-02 16:00] VITALS: BP 119/79
[2017-09-02] MEDS: SODIUM CHLORIDE 0.9% 1,000 ML IV SCH ×2 (18:30→18:54)
[2017-09-02 20:00] VITALS: BP 100/63
[2017-09-02] MEDS: MICONAZOLE NITRATE 2% OINT 71GM TOP SCH (21:00)
[2017-09-03] VITALS: BP 121/87
[2017-09-03] MEDS: HYDROCODONE/ACETAMINOPHEN 5/325MG TABLET PO PRN ×3 (03:09→23:59)
[2017-09-03 04:00] VITALS: BP 121/70
[2017-09-03] MEDS: SODIUM CHLORIDE 0.9% 1,000 ML IV SCH ×2 (04:30→14:30)
[2017-09-03] MEDS: INSULIN LISPRO 100 UNITS/ML SUBCUT SCH ×4 (06:46→21:06)
[2017-09-03] MEDS: BLOOD SUGAR DIAGNOSTIC STRIP TEST SCH ×4 (06:47→20:47)
[2017-09-03 08:00] VITALS: BP 125/78
[2017-09-03] MEDS: INS NPH/REG HM 70-30 100 UNITS/ML 10ML VIAL (HUMULIN 70-30) SUBCUT SCH (08:27)
[2017-09-03] MEDS: MICONAZOLE NITRATE 2% OINT 71GM TOP SCH ×2 (08:27→21:53)
[2017-09-03 12:00] VITALS: BP 110/76
[2017-09-03 16:00] VITALS: BP 138/81
[2017-09-03 20:00] VITALS: BP 121/76
[2017-09-04] VITALS (7 sets, daily range): BP systolic 106–126; BP diastolic 59–80
[2017-09-04] MEDS: SODIUM CHLORIDE 0.9% 1,000 ML IV SCH ×3 (00:30→20:25)
[2017-09-04] MEDS: INSULIN LISPRO 100 UNITS/ML SUBCUT SCH ×4 (06:47→20:24)
[2017-09-04] MEDS: BLOOD SUGAR DIAGNOSTIC STRIP TEST SCH ×4 (06:47→20:13)
[2017-09-04] MEDS: INS NPH/REG HM 70-30 100 UNITS/ML 10ML VIAL (HUMULIN 70-30) SUBCUT SCH (08:27)
[2017-09-04] MEDS: MICONAZOLE NITRATE 2% OINT 71GM TOP SCH ×3 (08:28→20:43)
[2017-09-05] VITALS: BP 121/81
[2017-09-05 04:00] VITALS: BP 119/71
[2017-09-05] MEDS: SODIUM CHLORIDE 0.9% 1,000 ML IV SCH (06:06)
[2017-09-05] MEDS: BLOOD SUGAR DIAGNOSTIC STRIP TEST SCH (06:20)
[2017-09-05] MEDS: INSULIN LISPRO 100 UNITS/ML SUBCUT SCH (06:22)
[2017-09-05] MEDS: MICONAZOLE NITRATE 2% OINT 71GM TOP SCH (08:16)
[2017-09-05] MEDS: INS NPH/REG HM 70-30 100 UNITS/ML 10ML VIAL (HUMULIN 70-30) SUBCUT SCH (08:16)
[2017-09-05 08:48] VITALS: BP 118/59
[2017-09-05 12:00] VITALS: BP 117/61
== END 2017-09-05 11:58 | disposition home or self-care (01) | DRG 637 ==
LOC: ER 22:38 → CVICU 08-31 03:02 → EDBEDREQSVC 08-31 03:10 → EDBEDREQ 08-31 03:10 → ENRESERV 08-31 03:39 → 8WST 08-31 16:54
PROVIDERS: ADMIT Hospitalist; ATTEND Hospitalist
DX: E11.65 Type 2 diabetes mellitus with hyperglycemia (principal); J18.9 Pneumonia, unspecified organism; E72.51 Non-ketotic hyperglycinemia; E87.2 Acidosis; E87.1 Hypo-osmolality and hyponatremia; I69.351 Hemiplegia and hemiparesis following cerebral infarction affecting right dominant side; D64.9 Anemia, unspecified; F17.200 Nicotine dependence, unspecified, uncomplicated; I10 Essential (primary) hypertension; I73.89 Other specified peripheral vascular diseases; Z79.4 Long term (current) use of insulin; I69.320 Aphasia following cerebral infarction; Z79.899 Other long term (current) drug therapy; Z79.82 Long term (current) use of aspirin; Z88.6 Allergy status to analgesic agent
CPT/HCPCS: 36415; 71045; 80048; 82010; 82962; 83036; 83605; 83735; 83930; 84100; 96365; 96375; 99291; J0456; J0610; J0692; J1815; J3370; J3480; J7030; J7050; J7060

== ENCOUNTER 2018-03-19 00:10 | Inpatient (IN) | payer MEDICARE, OTHER ==
[~2018-03-19] VITALS: Ht 165.1 cm; Wt 71.5 kg
[2018-03-19] MEDS ORDERED: KETOROLAC 30MG/ML VIAL IV ONE (03:00)
[2018-03-19 03:38] LABS: BASOPHILS % 1.8 % (0.0-2.0); CHLORIDE 92 mEq/L (98-107); EOSINOPHILS % 0.1 % (0.0-5.0); HEMATOCRIT. 36.6 % (36.0-48.0); HEMOGLOBIN. 12.2 g/dL (12.0-16.0); LYMPHOCYTES % 10.5 % (20.0-50.0); MEAN CORPUSCULAR HEMOGLOBIN 29.1 pg (28.0-32.0); MEAN CORPUSCULAR VOLUME 87.3 fL (81.0-99.0); MEAN PLATELET VOLUME 9.4 fl (7.4-10.4); MONOCYTES % 7.5 % (2.0-8.0); NEUTROPHILS % 80.1 % (40.0-76.0); PLATELET 280 x1000/uL (130-400); RED BLOOD CELL COUNT 4.19 mill/uL (4.2-5.4); RED CELL DISTRIBUTION WIDTH 14.1 % (11.6-14.6)
[2018-03-19 03:40] LABS: PARTIAL THROMBOPLASTIN TIME 30.5 sec (23.4-31.0); PROTHROMBIN TIME 10.2 sec (9.1-11.1)
[2018-03-19 03:43] LABS: ETHANOL BLOOD < 10 mg/dL
[2018-03-19 03:54] LABS: HCG SCREEN NEGATIVE
[2018-03-19 04:16] LABS: CLARITY URINE CLEAR (CLEAR); COLOR URINE YELLOW (YELLOW); KETONES URINE 3+ (NEGATIVE); LEUKOCYTE ESTERASE URINE NEGATIVE (NEGATIVE); NITRITE URINE NEGATIVE (NEGATIVE); OCCULT BLOOD URINE NEGATIVE (NEGATIVE); PROTEIN URINE 1+ (NEGATIVE); SPECIFIC GRAVITY URINE 1.035 (1.005-1.030)
[2018-03-19 04:35] LABS: CANNABINOID URINE SCREEN NEGATIVE (NEGATIVE); OPIATES URINE SCREEN NEGATIVE (NEGATIVE); PHENCYCLIDINE URINE SCREEN NEGATIVE (NEGATIVE)
[2018-03-19 04:36] LABS: *BENZODIAZEPINES SCREEN URINE NEGATIVE (NEGATIVE); *COCAINE SCREEN URINE PRESUMTIVE POSITIVE (NEGATIVE); METHADONE URINE SCREEN NEGATIVE (NEGATIVE)
[2018-03-19] MEDS ORDERED: INSULIN REGULAR (HUMULIN R) 300UNITS/3ML SUBCUT ONE (04:45)
[2018-03-19 04:47] LABS: *AMPHETAMINES SCREEN URINE NEGATIVE (NEGATIVE); *BARBITURATES SCREEN URINE NEGATIVE (NEGATIVE)
[2018-03-19] MEDS: SODIUM CHLORIDE 0.9% 1,000 ML IV ONE ×2 (04:58→05:17)
[2018-03-19] MEDS ORDERED: ONDANSETRON HCL 4MG/2ML VIAL IV PRN (09:00)
[2018-03-19] MEDS ORDERED: ACETAMINOPHEN 650MG SUPP PR PRN (09:00)
[2018-03-19] MEDS ORDERED: HYDROCODONE/ACETAMINOPHEN 5/325MG TABLET PO PRN (09:00)
[2018-03-19] MEDS ORDERED: MAGNESIUM/ALUMINUM HYDROXIDE/SIMETHICONE 30ML UDC PO PRN (09:00)
[2018-03-19] MEDS ORDERED: ACETAMINOPHEN 650MG/20.3ML UDC GT PRN (09:00)
[2018-03-19] MEDS ORDERED: LORAZEPAM 2MG/ML CPJ IV PRN (09:00)
[2018-03-19 09:55] LABS: BETA HYDROXYBUTYRATE 1.5 mMol/L (0.0-0.3)
[2018-03-19] MEDS ORDERED: DEXTROSE 50% WATER 50ML SYRINGE IV PRN (10:15)
[2018-03-19 10:45] VITALS: BP 109/73
[2018-03-19] MEDS ORDERED: SODIUM POLYSTYRENE SULFONATE 15 G/60 ML BOT PO SCH (11:00)
[2018-03-19 11:02] VITALS: BP 109/73
[2018-03-19] MEDS: BLOOD SUGAR DIAGNOSTIC STRIP TEST SCH ×3 (12:23→21:12)
[2018-03-19 12:35] LABS: CHLORIDE 98 mEq/L (98-107)
[2018-03-19 12:39] LABS: BASOPHILS % 0.9 % (0.0-2.0); EOSINOPHILS % 0.8 % (0.0-5.0); HEMATOCRIT. 35.9 % (36.0-48.0); HEMOGLOBIN. 12.2 g/dL (12.0-16.0); LYMPHOCYTES % 16.9 % (20.0-50.0); MEAN CORPUSCULAR HEMOGLOBIN 29.6 pg (28.0-32.0); MEAN PLATELET VOLUME 8.3 fl (7.4-10.4); NEUTROPHILS % 74.4 % (40.0-76.0); PLATELET 284 x1000/uL (130-400); RED BLOOD CELL COUNT 4.13 mill/uL (4.2-5.4)
[2018-03-19] MEDS: SODIUM CHLORIDE 0.45% 1,000 ML IV SCH (12:58)
[2018-03-19] MEDS: INSULIN LISPRO 100 UNITS/ML SUBCUT SCH ×2 (12:59→17:38)
[2018-03-19 15:59] LABS: CREATINE KINASE 77 IU/L (26-192)
[2018-03-19 16:00] VITALS: BP 124/75
[2018-03-19] MEDS: HYDROCODONE/ACETAMINOPHEN 10/325MG TABLET PO PRN (17:40)
[2018-03-19 20:00] VITALS: BP 101/66
[2018-03-19 20:03] LABS: FOLIC ACID (FOLATE) SERUM > 20.00 ng/mL (>5.38)
[2018-03-19 20:15] LABS: VITAMIN B12 SERUM >2000 pg/mL pg/mL (211-911)
[2018-03-19] MEDS ORDERED: INSULIN GLARGINE UD 100 UNITS/ML SYR SUBCUT SCH (22:00)
[2018-03-20] VITALS (7 sets, daily range): BP systolic 96–133; BP diastolic 57–76
[2018-03-20] MEDS: HYDROCODONE/ACETAMINOPHEN 10/325MG TABLET PO PRN ×2 (00:05→12:27)
[2018-03-20] MEDS: BLOOD SUGAR DIAGNOSTIC STRIP TEST SCH ×5 (06:10→21:12)
[2018-03-20] MEDS: GLIMEPIRIDE 2MG TABLET PO SCH ×2 (06:15→17:53)
[2018-03-20] MEDS: INSULIN LISPRO 100 UNITS/ML SUBCUT SCH ×7 (06:31→21:11)
[2018-03-20] MEDS: LINAGLIPTIN 5MG TABLET PO SCH (08:39)
[2018-03-20] MEDS: INSULIN GLARGINE UD 100 UNITS/ML SYR SUBCUT SCH ×2 (10:30→21:11)
[2018-03-20] MEDS: SODIUM CHLORIDE 0.45% 1,000 ML IV SCH ×2 (10:30→23:21)
[2018-03-20 10:58] LABS: EOSINOPHILS % 1.1 % (0.0-5.0); HEMATOCRIT. 34.1 % (36.0-48.0); HEMOGLOBIN. 11.7 g/dL (12.0-16.0); LYMPHOCYTES % 11.7 % (20.0-50.0); MEAN CORPUSCULAR HEMOGLOBIN 29.8 pg (28.0-32.0); MEAN CORPUSCULAR VOLUME 86.6 fL (81.0-99.0); MEAN PLATELET VOLUME 8.4 fl (7.4-10.4); MONOCYTES % 6.8 % (2.0-8.0); NEUTROPHILS % 79.4 % (40.0-76.0); PLATELET 344 x1000/uL (130-400); RED BLOOD CELL COUNT 3.94 mill/uL (4.2-5.4); RED CELL DISTRIBUTION WIDTH 13.7 % (11.6-14.6)
[2018-03-20 11:10] LABS: CHLORIDE 97 mEq/L (98-107)
[2018-03-20 11:17] LABS: PHOSPHORUS 2.2 mg/dL (2.5-4.9)
[2018-03-20 11:18] LABS: CREATINE KINASE 99 IU/L (26-192); LDL CHOLESTEROL 93 mg/dL (5-100)
[2018-03-20 11:19] LABS: CREATINE KINASE MB FRACTION < 1.0 ng/mL (0.5-3.6)
[2018-03-20 11:20] LABS: HDL CHOLESTEROL 31 mg/dL (40-59)
[2018-03-20 11:21] LABS: T4 FREE 1.17 ng/dL (0.76-1.46)
[2018-03-20] MEDS: ACETAMINOPHEN 325MG TABLET PO PRN ×2 (16:46→22:53)
[2018-03-20] MEDS: ATORVASTATIN CALCIUM 40MG TABLET PO SCH (21:05)
[2018-03-20] MEDS: NEOMY SULF/BACITRAC ZN/POLY OINT 28GM TOP SCH (21:05)
[2018-03-21] VITALS: BP 115/75
[2018-03-21 04:00] VITALS: BP 113/67
[2018-03-21] MEDS: BLOOD SUGAR DIAGNOSTIC STRIP TEST SCH ×4 (05:38→21:52)
[2018-03-21] MEDS: GLIMEPIRIDE 2MG TABLET PO SCH ×2 (06:02→17:49)
[2018-03-21] MEDS: INSULIN LISPRO 100 UNITS/ML SUBCUT SCH ×7 (06:03→21:49)
[2018-03-21] MEDS: LINAGLIPTIN 5MG TABLET PO SCH (09:24)
[2018-03-21] MEDS: NEOMY SULF/BACITRAC ZN/POLY OINT 28GM TOP SCH ×2 (09:32→21:27)
[2018-03-21] MEDS: INSULIN GLARGINE UD 100 UNITS/ML SYR SUBCUT SCH ×2 (09:32→21:52)
[2018-03-21 11:55] VITALS: BP 111/67
[2018-03-21] MEDS: ACETAMINOPHEN 325MG TABLET PO PRN (13:09)
[2018-03-21] MEDS: ENOXAPARIN 40MG/0.4ML SYR SUBCUT SCH (13:12)
[2018-03-21 14:54] LABS: BASOPHILS % 0.4 % (0.0-2.0); EOSINOPHILS % 0.7 % (0.0-5.0); HEMOGLOBIN. 10.9 g/dL (12.0-16.0); LYMPHOCYTES % 13.9 % (20.0-50.0); MEAN CORPUSCULAR HEMOGLOBIN 29.4 pg (28.0-32.0); MEAN PLATELET VOLUME 7.8 fl (7.4-10.4); MONOCYTES % 7.3 % (2.0-8.0); NEUTROPHILS % 77.7 % (40.0-76.0); PLATELET 321 x1000/uL (130-400); RED BLOOD CELL COUNT 3.72 mill/uL (4.2-5.4); RED CELL DISTRIBUTION WIDTH 13.8 % (11.6-14.6)
[2018-03-21 15:01] LABS: CHLORIDE 97 mEq/L (98-107)
[2018-03-21 15:07] LABS: PHOSPHORUS 2.9 mg/dL (2.5-4.9)
[2018-03-21 16:00] VITALS: BP 101/50
[2018-03-21 20:00] VITALS: BP 120/66
[2018-03-21 20:03] LABS: CLARITY URINE TURBID (CLEAR); COLOR URINE YELLOW (YELLOW); KETONES URINE NEGATIVE (NEGATIVE); LEUKOCYTE ESTERASE URINE 3+ (NEGATIVE); NITRITE URINE NEGATIVE (NEGATIVE); OCCULT BLOOD URINE 2+ (NEGATIVE); PH URINE 5.5 (4.5-8.0); PROTEIN URINE 1+ (NEGATIVE); SPECIFIC GRAVITY URINE 1.018 (1.005-1.030)
[2018-03-21] MEDS: ATORVASTATIN CALCIUM 40MG TABLET PO SCH (21:26)
[2018-03-21] MEDS: SODIUM CHLORIDE 0.45% 1,000 ML IV SCH (21:26)
[2018-03-22] VITALS: BP 147/84
[2018-03-22] MEDS: SODIUM CHLORIDE 0.45% 1,000 ML IV SCH ×2 (01:00→12:54)
[2018-03-22 04:00] VITALS: BP 132/70
[2018-03-22] MEDS: BLOOD SUGAR DIAGNOSTIC STRIP TEST SCH ×4 (07:50→20:56)
[2018-03-22] MEDS: INSULIN LISPRO 100 UNITS/ML SUBCUT SCH ×7 (07:58→21:18)
[2018-03-22 08:30] VITALS: BP 117/70
[2018-03-22] MEDS: LINAGLIPTIN 5MG TABLET PO SCH (09:30)
[2018-03-22] MEDS: NEOMY SULF/BACITRAC ZN/POLY OINT 28GM TOP SCH ×2 (09:30→21:14)
[2018-03-22] MEDS: GLIMEPIRIDE 2MG TABLET PO SCH ×2 (09:31→17:32)
[2018-03-22] MEDS: INSULIN GLARGINE UD 100 UNITS/ML SYR SUBCUT SCH ×2 (10:21→21:18)
[2018-03-22 12:00] VITALS: BP 105/60
[2018-03-22] MEDS: CEFTRIAXONE 1 G PREMIX 50 ML IV SCH (12:50)
[2018-03-22] MEDS: ENOXAPARIN 40MG/0.4ML SYR SUBCUT SCH (12:50)
[2018-03-22] MEDS: HYDROCODONE/ACETAMINOPHEN 10/325MG TABLET PO PRN (13:32)
[2018-03-22 16:00] VITALS: BP 103/63
[2018-03-22] MEDS ORDERED: LINA5TAB PO (16:36)
[2018-03-22] MEDS ORDERED: INSLIS SUBCUT ×2 (16:36)
[2018-03-22] MEDS ORDERED: LIP40 PO (16:36)
[2018-03-22] MEDS ORDERED: AMA2 PO (16:36)
[2018-03-22] MEDS ORDERED: LANTUSUD SUBCUT ×2 (16:36)
[2018-03-22 20:00] VITALS: BP 113/73
[2018-03-22] MEDS: ATORVASTATIN CALCIUM 40MG TABLET PO SCH (21:13)
[2018-03-23] VITALS (8 sets, daily range): BP systolic 106–127; BP diastolic 61–86
[2018-03-23] MEDS: SODIUM CHLORIDE 0.45% 1,000 ML IV SCH ×2 (01:40→14:30)
[2018-03-23] MEDS: HYDROCODONE/ACETAMINOPHEN 10/325MG TABLET PO PRN (02:05)
[2018-03-23] MEDS: BLOOD SUGAR DIAGNOSTIC STRIP TEST SCH ×4 (05:58→20:46)
[2018-03-23] MEDS: INSULIN LISPRO 100 UNITS/ML SUBCUT SCH ×7 (05:58→21:22)
[2018-03-23] MEDS: GLIMEPIRIDE 2MG TABLET PO SCH ×2 (06:04→17:05)
[2018-03-23] MEDS: LINAGLIPTIN 5MG TABLET PO SCH (08:48)
[2018-03-23] MEDS: INSULIN GLARGINE UD 100 UNITS/ML SYR SUBCUT SCH ×2 (09:23→22:20)
[2018-03-23] MEDS: NEOMY SULF/BACITRAC ZN/POLY OINT 28GM TOP SCH ×2 (09:25→21:16)
[2018-03-23] MEDS: CEFTRIAXONE 1 G PREMIX 50 ML IV SCH (12:00)
[2018-03-23] MEDS: ENOXAPARIN 40MG/0.4ML SYR SUBCUT SCH (14:45)
[2018-03-23] MEDS: ACETAMINOPHEN 325MG TABLET PO PRN (21:15)
[2018-03-23] MEDS: ATORVASTATIN CALCIUM 40MG TABLET PO SCH (21:15)
[2018-03-23] MEDS: CEPHALEXIN 500MG CAPSULE PO SCH (21:16)
[2018-03-24] MEDS: SODIUM CHLORIDE 0.45% 1,000 ML IV SCH ×3 (03:00→19:51)
[2018-03-24 04:00] VITALS: BP 138/81
[2018-03-24] MEDS: BLOOD SUGAR DIAGNOSTIC STRIP TEST SCH ×4 (05:56→20:20)
[2018-03-24] MEDS: INSULIN LISPRO 100 UNITS/ML SUBCUT SCH ×7 (06:07→20:18)
[2018-03-24 08:00] VITALS: BP 123/73
[2018-03-24] MEDS: CEPHALEXIN 500MG CAPSULE PO SCH ×2 (09:42→20:18)
[2018-03-24] MEDS: LINAGLIPTIN 5MG TABLET PO SCH (09:42)
[2018-03-24] MEDS: GLIMEPIRIDE 2MG TABLET PO SCH ×2 (09:42→17:40)
[2018-03-24] MEDS: INSULIN GLARGINE UD 100 UNITS/ML SYR SUBCUT SCH ×2 (09:44→22:30)
[2018-03-24] MEDS: NEOMY SULF/BACITRAC ZN/POLY OINT 28GM TOP SCH ×2 (09:56→20:19)
[2018-03-24] MEDS: ACETAMINOPHEN 325MG TABLET PO PRN ×2 (09:56→20:18)
[2018-03-24 10:14] LABS: BASOPHILS % 0.6 % (0.0-2.0); HEMOGLOBIN. 11.3 g/dL (12.0-16.0); LYMPHOCYTES % 12.6 % (20.0-50.0); MEAN CORPUSCULAR HEMOGLOBIN 29.4 pg (28.0-32.0); MEAN CORPUSCULAR VOLUME 86.1 fL (81.0-99.0); MEAN PLATELET VOLUME 7.5 fl (7.4-10.4); MONOCYTES % 12.2 % (2.0-8.0); NEUTROPHILS % 73.6 % (40.0-76.0); PLATELET 414 x1000/uL (130-400); RED BLOOD CELL COUNT 3.83 mill/uL (4.2-5.4); RED CELL DISTRIBUTION WIDTH 13.8 % (11.6-14.6)
[2018-03-24 10:17] LABS: CHLORIDE 103 mEq/L (98-107)
[2018-03-24 12:00] VITALS: BP_SYST 118; BP_SYST 123; BP_DIAS 67; BP_DIAS 78
[2018-03-24] MEDS: ENOXAPARIN 40MG/0.4ML SYR SUBCUT SCH (13:38)
[2018-03-24 16:00] VITALS: BP 113/67
[2018-03-24 20:00] VITALS: BP 137/82
[2018-03-24] MEDS: ATORVASTATIN CALCIUM 40MG TABLET PO SCH (20:18)
[2018-03-25] VITALS: BP 122/69
[2018-03-25 04:00] VITALS: BP 123/74
[2018-03-25] MEDS: BLOOD SUGAR DIAGNOSTIC STRIP TEST SCH ×4 (06:06→20:29)
[2018-03-25] MEDS: INSULIN LISPRO 100 UNITS/ML SUBCUT SCH ×7 (06:14→20:25)
[2018-03-25 06:45] LABS: BASOPHILS % 0.7 % (0.0-2.0); EOSINOPHILS % 0.9 % (0.0-5.0); HEMATOCRIT. 35.4 % (36.0-48.0); LYMPHOCYTES % 14.5 % (20.0-50.0); MEAN CORPUSCULAR HEMOGLOBIN 29.4 pg (28.0-32.0); MEAN CORPUSCULAR VOLUME 87.1 fL (81.0-99.0); MEAN PLATELET VOLUME 7.3 fl (7.4-10.4); NEUTROPHILS % 73.9 % (40.0-76.0); PLATELET 421 x1000/uL (130-400); RED BLOOD CELL COUNT 4.06 mill/uL (4.2-5.4); RED CELL DISTRIBUTION WIDTH 13.9 % (11.6-14.6)
[2018-03-25 07:30] VITALS: BP 118/78
[2018-03-25 07:38] LABS: CHLORIDE 101 mEq/L (98-107)
[2018-03-25 07:52] LABS: PHOSPHORUS 3.8 mg/dL (2.5-4.9)
[2018-03-25] MEDS: CEPHALEXIN 500MG CAPSULE PO SCH ×2 (08:46→20:23)
[2018-03-25] MEDS: GLIMEPIRIDE 2MG TABLET PO SCH ×2 (08:46→16:50)
[2018-03-25] MEDS: NEOMY SULF/BACITRAC ZN/POLY OINT 28GM TOP SCH ×2 (08:47→20:26)
[2018-03-25] MEDS: LINAGLIPTIN 5MG TABLET PO SCH (08:47)
[2018-03-25] MEDS: INSULIN GLARGINE UD 100 UNITS/ML SYR SUBCUT SCH ×2 (10:00→20:29)
[2018-03-25] MEDS: ENOXAPARIN 40MG/0.4ML SYR SUBCUT SCH (11:42)
[2018-03-25 12:00] VITALS: BP 108/69
[2018-03-25 16:00] VITALS: BP 127/79
[2018-03-25] MEDS: SODIUM CHLORIDE 0.45% 1,000 ML IV SCH (16:01)
[2018-03-25 20:00] VITALS: BP 123/82
[2018-03-25] MEDS: ATORVASTATIN CALCIUM 40MG TABLET PO SCH (20:23)
[2018-03-26] VITALS: BP 125/71
[2018-03-26 04:00] VITALS: BP 118/69
[2018-03-26] MEDS: SODIUM CHLORIDE 0.45% 1,000 ML IV SCH (05:00)
[2018-03-26] MEDS: INSULIN LISPRO 100 UNITS/ML SUBCUT SCH ×2 (06:11→08:25)
[2018-03-26] MEDS: BLOOD SUGAR DIAGNOSTIC STRIP TEST SCH (06:11)
[2018-03-26] MEDS ORDERED: LORAZEPAM 2MG/ML CPJ IV PRN (08:00)
[2018-03-26 08:01] VITALS: BP 109/68
[2018-03-26] MEDS: GLIMEPIRIDE 2MG TABLET PO SCH (08:24)
[2018-03-26] MEDS: LINAGLIPTIN 5MG TABLET PO SCH (08:24)
[2018-03-26] MEDS: CEPHALEXIN 500MG CAPSULE PO SCH (08:24)
[2018-03-26] MEDS: NEOMY SULF/BACITRAC ZN/POLY OINT 28GM TOP SCH (08:26)
[2018-03-26 09:29] VITALS: BP 125/71
[2018-03-26] MEDS ORDERED: LORAZEPAM 2MG/ML CPJ IM PRN ×2 (10:00→14:00)
[2018-03-26] MEDS ORDERED: ENOXAPARIN 40MG/0.4ML SYR SUBCUT SCH (10:00)
[2018-03-26] MEDS: INSULIN GLARGINE UD 100 UNITS/ML SYR SUBCUT SCH (10:15)
== END 2018-03-26 11:25 | DRG 871 ==
LOC: ER 04:47 → 8WST 05:18 → ENRESERV 07:41 → 8WST 10:38
PROVIDERS: ADMIT Internal Medicine; ATTEND Internal Medicine
DX: A41.9 Sepsis, unspecified organism (principal); G92 Toxic encephalopathy; E87.1 Hypo-osmolality and hyponatremia; E44.0 Moderate protein-calorie malnutrition; I69.351 Hemiplegia and hemiparesis following cerebral infarction affecting right dominant side; N39.0 Urinary tract infection, site not specified; E87.5 Hyperkalemia; F19.10 Other psychoactive substance abuse, uncomplicated; L89.150 Pressure ulcer of sacral region, unstageable; M79.605 Pain in left leg; M79.604 Pain in right leg; S80.812A Abrasion, left lower leg, initial encounter; S80.811A Abrasion, right lower leg, initial encounter; I10 Essential (primary) hypertension; F14.10 Cocaine abuse, uncomplicated; Z68.26 Body mass index [BMI] 26.0-26.9, adult; E11.65 Type 2 diabetes mellitus with hyperglycemia; E78.5 Hyperlipidemia, unspecified; E86.9 Volume depletion, unspecified; J44.9 Chronic obstructive pulmonary disease, unspecified; S40.811A Abrasion of right upper arm, initial encounter; X58.XXXA Exposure to other specified factors, initial encounter; Y93.89 Activity, other specified; Y92.89 Other specified places as the place of occurrence of the external cause; I69.320 Aphasia following cerebral infarction; Y99.8 Other external cause status; Z88.5 Allergy status to narcotic agent; Z79.899 Other long term (current) drug therapy; Z79.82 Long term (current) use of aspirin; Z79.84 Long term (current) use of oral hypoglycemic drugs; Z59.0 Homelessness
CPT/HCPCS: 36415; 70450; 70551; 71045; 76770; 80048; 80053; 80061; 80305; 81003; 82010; 82024; 82088; 82533; 82550; 82553; 82607; 82746; 82962; 83036; 83605; 83690; 83735; 83880; 83930; 84100; 84134; 84145; 84244; 84439; 84443; 84481; 84484; 84681; 84703; 85025; 85610; 85730; 87040; 87077; 87086; 87186; 92523; 92610; 93005; 93306; 93970; 96372; 96374; 97161; 97166; 97530; 97535; 99285; A6261; C1893; G0482; J0696; J1650; J1815; J1885; J2060; J7030

== ENCOUNTER 2018-03-26 12:32 | Emergency (ER) | payer MEDICARE, OTHER ==
[~2018-03-26] VITALS: Ht 162.6 cm; Wt 60.0 kg
[~2018-03-26 12:32] MED LIST changes: +AMA2 PO; -ASPI-986 PO; -ATOR20TA PO; -GLIP10TA10 PO; +INSLIS SUBCUT; +LANTUSUD SUBCUT; +LINA5TAB PO; +LIP40 PO; -NVLG73 SUBCUT; -PROT20 PO
[2018-03-26 18:47] VITALS: BP 126/76
== END 2018-03-26 18:58 | disposition home or self-care (01) ==
LOC: ER 12:32
DX: R53.1 Weakness (principal); I10 Essential (primary) hypertension; J45.909 Unspecified asthma, uncomplicated; F14.10 Cocaine abuse, uncomplicated; Z79.899 Other long term (current) drug therapy; Z79.4 Long term (current) use of insulin; Z79.82 Long term (current) use of aspirin; Z88.6 Allergy status to analgesic agent; Z86.73 Personal history of transient ischemic attack (TIA), and cerebral infarction without residual deficits
CPT/HCPCS: 99283